=== PATIENT | female | born 1975 | race Asian ===

== ENCOUNTER 2019-04-23 10:03 | Emergency (ER) | payer SELFPAY ==
[~2019-04-23] VITALS: Ht 160 cm; Wt 65.0 kg
[~2019-04-23 10:03] MED LIST: DOCU-144 PO; FER325 PO
[2019-04-23 10:18] VITALS: BP 133/83; PULSE 86; RESP 18; Ht 160 cm; Wt 65.0 kg
== END 2019-04-23 12:41 | disposition home or self-care (01) ==
LOC: FTE 10:03
DX: D25.9 Leiomyoma of uterus, unspecified (principal)
CPT/HCPCS: 36415; 76856; 80053; 81001; 81003; 81025; 83690; 85025

== ENCOUNTER 2019-04-24 20:15 | Inpatient (IN) | payer SELFPAY ==
[~2019-04-24] VITALS: Ht 160 cm; Wt 64.0 kg
[2019-04-24 20:25] VITALS: Ht 160 cm; Wt 64.0 kg
[2019-04-24] MEDS ORDERED: SOD CHLORIDE 0.9% 1,000 ML IV STA (20:40)
[2019-04-24] MEDS ORDERED: ACETAMINOPHEN 325 MG TAB PO PRN (22:30)
[2019-04-24] MEDS ORDERED: ONDANSETRON 4 MG INJ IV PRN (22:30)
[2019-04-24 23:00] VITALS: BP 103/63; PULSE 101; RESP 18
[2019-04-25] MEDS ORDERED: ONDANSETRON 4 MG INJ IV PRN (02:30)
[2019-04-25] MEDS ORDERED: DIPHENHYDRAMINE 25 MG CAP PO ONE ×2 (02:30→10:30)
[2019-04-25] MEDS ORDERED: IBUPROFEN 600 MG TAB PO PRN (02:30)
[2019-04-25] MEDS ORDERED: ACETAMINOPHEN 325 MG TAB PO ONE (02:30)
[2019-04-25 02:46] VITALS: BP 101/57; PULSE 97; RESP 18
[2019-04-25] MEDS: LACTATED RINGER'S 1,000 ML IV SCH ×3 (03:05→18:19)
[2019-04-25 07:55] VITALS: BP 103/64; PULSE 92; RESP 17
[2019-04-25] MEDS: ACETAMINOPHEN 325 MG TAB PO PRN (10:12)
[2019-04-25 15:44] VITALS: BP 119/64; PULSE 96; RESP 16
[2019-04-25 19:56] VITALS: BP 125/68; PULSE 92; RESP 19
[2019-04-26 01:30] VITALS: BP 125/74; PULSE 104; RESP 18
[2019-04-26] MEDS: LACTATED RINGER'S 1,000 ML IV SCH ×4 (02:57→21:39)
[2019-04-26 07:29] VITALS: BP 117/57; PULSE 100; RESP 18
[2019-04-26 16:23] VITALS: BP 123/64; PULSE 106; RESP 16
[2019-04-26 20:50] VITALS: BP 122/67; PULSE 94; RESP 18
[2019-04-27] VITALS (8 sets, daily range): BP systolic 117–150; BP diastolic 65–86; PULSE 93–102; RESP 17–19
[2019-04-27] MEDS: LACTATED RINGER'S 1,000 ML IV SCH ×5 (02:30→23:22)
[2019-04-27] MEDS: ACETAMINOPHEN 325 MG TAB PO PRN (16:57)
[2019-04-27] MEDS ORDERED: TRANEXAMIC ACID 1GM/100ML(PMX) 100 ML IV ONE (18:00)
[2019-04-28 02:31] VITALS: BP 117/66; PULSE 94; RESP 16
[2019-04-28 07:45] VITALS: BP 109/69; PULSE 89; RESP 16
[2019-04-28 14:01] VITALS: BP 117/62; PULSE 95; RESP 16
== END 2019-04-28 17:35 | disposition home or self-care (01) | DRG 761 ==
LOC: E/R 20:15 → 2NE 23:33 → OBSVTOIN 04-26 07:53
PROVIDERS: ADMIT Obstetrics & Gynecology Gynecology; ATTEND Obstetrics & Gynecology Gynecology
PROC: 30233N1 Transfusion of Nonautologous Red Blood Cells into Peripheral Vein, Percutaneous Approach (ICD-10-PCS; principal; 2019-04-25)
DX: N92.1 Excessive and frequent menstruation with irregular cycle (principal); D64.9 Anemia, unspecified; Z80.41 Family history of malignant neoplasm of ovary; D25.9 Leiomyoma of uterus, unspecified
CPT/HCPCS: 36415; 36430; 72196; 74183; 80048; 81001; 81025; 84146; 84439; 84443; 85025; 85610; 85730; 86850; 86900; 86901; 86920; 87086; G0378; J7030; J7120; P9016